=== PATIENT | female | born 1975 | race Caucasian/White ===

== ENCOUNTER 2019-02-28 13:27 | Outpatient (RCR) | payer OTHER, SELFPAY ==
--- NOTE | 2019-02-28 12:39 | WPDWOUNDNOTE ---
Wound Care Note Date/Time: 02/28/19 12:39 Patient is a 43-year-old woman who presented to the emergency room very early in the morning on February 17. She had obstipation for several days as well as abdominal distention and pain. CT scan showed evidence of an obstructing distal descending colon cancer. She had a limited colonoscopy on 02/18. Biopsies subsequently showed adenocarcinoma of the colon. Her CEA level was 5. CT scan of the abdomen and pelvis done in the emergency room did not show evidence of liver metastases. The patient underwent a diverting transverse loop colostomy on February 18, [address] bain. She recovered from that surgery uneventfully. She had colostomy teaching and was discharged on February 21, 2019. She is seen now in the wound clinic for evaluation of her colostomy and discussion of upcoming surgery which is to be done 2 days from now. She will also have irrigation of the distal colostomy in the wound clinic. Patient reports she is eating well. She is having no pain. She had several questions about the surgery which were all answered. EXAM-colostomy still edematous but working well. She does have some superficial skin breakdown due to making the aperture to large between the stoma and the umbilicus. Enterostomal therapist irrigating distal limb did bring back considerable amount of stool. The cephalad incision associated with colostomy creation is healing well. Assessment and Plan Assessment and plan (1) Adenocarcinoma of descending colon: Code(s): C18.6 - Malignant neoplasm of descending colon Status: Acute Assessment and Plan: Plan to proceed with take down of did transverse diverting colostomy as well as resection of the descending colon cancer on Saturday March 02, 2019. We discussed this procedure again. The procedure the risks the benefits were discussed. The potential for still requiring some type of colostomy or enterostomy was discussed. The usual recovery and time in the hospital were discussed. All questions were answered. She agrees to proceed. (2) Colostomy status: Code(s): Z93.3 - Colostomy status Status: Acute Assessment and Plan: Colostomy working well and patient is able to manage the colostomy. She does have some superficial skin breakdown just below the colostomy in above the umbilicus. This should not interfere with the surgery. Thankfully, she will only have the colostomy today and tomorrow and surgery is planned for Friday 03/02. The distal limb of the colostomy was irrigated in the wound clinic to facilitate prepared bowel for her left colectomy to be done on Thursday. (3) Smoker: Code(s): F17.200 - Nicotine dependence, unspecified, uncomplicated Status: Acute Assessment and Plan: Patient advises she really only smokes 1 or 2 cigarettes at bedtime. This relaxes her to help her sleep. She is currently taking a natural sedative at bedtime. (4) Anemia, pernicious: Code(s): D51.0 - Vitamin B12 deficiency anemia due to intrinsic factor deficiency Status: Chronic Assessment and Plan: Last hemoglobin was 10.3 on February 20. Anemia stable.
[2019-02-28 13:41] VITALS: BMI 19.8
== END 2019-05-16 07:50 | disposition home or self-care (01) ==
LOC: ANHWOC 13:27
PROVIDERS: Visit Provider Surgery
DX: Z43.3 Encounter for attention to colostomy (principal); C18.6 Malignant neoplasm of descending colon
CPT/HCPCS: 99213; G0463

== ENCOUNTER 2020-03-02 00:07 | Outpatient (CLI) | payer OTHER, SELFPAY ==
[2020-03-02 19:25] LABS: SARS-CoV-2 RNA PCR Negative
== END 2020-03-02 00:08 | disposition home or self-care (01) ==
LOC: ANHCOVIDDT 00:07
PROVIDERS: PCP Internal Medicine; Visit Provider Internal Medicine Gastroenterology
DX: Z20.828 Contact with and (suspected) exposure to other viral communicable diseases (principal)
CPT/HCPCS: 87635; C9803; U0003

== ENCOUNTER 2020-03-05 00:59 | Day surgery (SDC) | payer OTHER, SELFPAY ==
[2020-02-27 14:54] VITALS: BMI 20.9
[2020-03-05 06:24] VITALS: BP 104/66; PULSE 63; RESP 16; TEMP 36.5; O2SAT 99; BMI 20.9
[2020-03-05] MEDS: LACTATED RINGERS 1,000 ML 150 ML IV CONT (06:36)
--- NOTE | 2020-03-05 07:13 | WPDANESEPPF ---
Anes - Initial Pre Proc Eval Procedure: Operation Date: 03/05/20 07:30 Proposed Procedures p Screening Colonoscopy - Agapito Chan MD Date/Time: 03/05/20 07:13 Surgeon: Agapito Chan MD Pre Op Diagnosis: hx of colon CA, screening colonoscopy Patient Data Age: 44 Gender: F Height: 5 ft 2 in Weight: 52.1 kg Last Vital Signs Temp 97.7 F 03/05/20 06:24 Pulse 63 03/05/20 06:24 Resp 16 03/05/20 06:24 BP 104/66 03/05/20 06:24 Pulse Ox 99 03/05/20 06:24 Allergies Allergy/AdvReac Type Severity Reaction Status Date / Time No Known Allergies Allergy Verified 03/05/20 06:23 Home Medications Medication Instructions Recorded Confirmed Type cyanocobalamin (vitamin B-12) 1,000 mcg SUBCUT [id number] 02/24/19 02/27/20 History syringe with needle 3 mL 23 x 1 #50 each 12/27/19 01/09/20 Rx Patient hx anesthesia problems: none Family hx anesthesia problems: none PMFSH Past Medical History Medical History Adenocarcinoma of descending colon Stage IIA, T3 N0 M0 Anemia, pernicious Obstruction of descending colon Seizure Smoker Surgical History Surgical History History of partial colectomy Closure transverse colostomy, descending colon resection with anastomosis 03/02/2019 Family History Family History Mother Diabetes 1.5, managed as type 2 CD (Crohn's disease) History of bowel resection Cirrhosis of liver Diverticulitis of both large and small intestine Father History of knee surgery Other Colon cancer Social History Social History Social History: Her Ye is her durable power trademark attorney for healthcare and she wishes to be a full code. She has 2 children. 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 Gender identity (if verbalized by the patient): Female Spiritual care concerns: No Agree to blood products: Yes Anes - Eval Final PreProcedure Day of Procedure 03/05/20 07:13 Patient weight: normal Heart: regular rate and rhythm Lungs: clear to auscultation Airway: Mallampati scale Neurological: alert and oriented Last oral intake: >/= 8 hours ASA classification: III Emergent: no Anesthetic plan: proceed Anesthesia type and monitoring: general GIVS and standard monitoring Informed Consent: The patient's anesthetic plan and its attendant risks and benefits were discussed with the patient/family/POA. Questions were solicited and answers provided to the satisfaction of the patient/family/POA.
--- NOTE | 2020-03-05 07:40 | WPDGICN ---
Assessment and Plan Assessment and plan (1) Adenocarcinoma of descending colon: Code(s): C18.6 - Malignant neoplasm of descending colon Status: Acute Assessment and Plan: Patient with a history of carcinoma colon resected February 2019. Doing well presently. Plan is for surveillance colonoscopy now and at intervals in the future. GI Consult Note Consult date/time: 03/05/20 07:40 HPI: Vinita Faitma is a 44 year old female Seen in evaluation at the request of Dr. Rodríguez. Patient has a history of carcinoma colon identified by endoscopy 1 year ago. Patient presents today for follow-up examination. Patient's current weight appetite bowel movements are normal. Patient denies abdominal pain. Her bowel habits are normal. She denies any bleeding. Her weight has remained stable. Review of Systems Review of Systems: All systems reviewed & are unremarkable except as noted in HPI and below PMFSH Past Medical History Medical History Adenocarcinoma of descending colon Stage IIA, T3 N0 M0 Anemia, pernicious Obstruction of descending colon Seizure Smoker Surgical History Surgical History (Reviewed 03/17/19 @ 08:25 by Rebecca Weeks [facility]) History of partial colectomy Closure transverse colostomy, descending colon resection with anastomosis 03/02/2019 Family History Family History (Reviewed 03/17/19 @ 08:25 by Rebecca Weeks [facility]) Mother Diabetes 1.5, managed as type 2 CD (Crohn's disease) History of bowel resection Cirrhosis of liver Diverticulitis of both large and small intestine Father History of knee surgery Other Colon cancer Social History Social History (Reviewed 03/17/19 @ 08:25 by Rebecca Weeks [facility]) Social History: Her Ye is her durable power deputy county attorney for healthcare and she wishes to be a full code. She has 2 children. 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 Gender identity (if verbalized by the patient): Female Spiritual care concerns: No Agree to blood products: Yes Meds Home Medications and Allergies Home Medications Medication Instructions Recorded Confirmed Type cyanocobalamin (vitamin B-12) 1,000 mcg SUBCUT [id number] 02/24/19 02/27/20 History syringe with needle 3 mL 23 x 1 #50 each 12/27/19 01/09/20 Rx Allergies Allergy/AdvReac Type Severity Reaction Status Date / Time No Known Allergies Allergy Verified 03/05/20 06:23 Vital Signs Vital Signs - 24 hr 03/05/20 06:24 Temperature 97.7 F Pulse Rate 63 Respiratory Rate 16 Blood Pressure 104/66 Pulse Oximetry 99 Exam Narrative: Exam Narrative: Physical exam reveals patient to be alert. Vital signs stable. HEENT exam unremarkable. Lungs are clear to auscultation and percussion. Heart is without murmur or extra sounds. Abdominal exam bowel sounds are present soft nontender with no organomegaly. Digital external rectal exam normal.
[2020-03-05 07:44] VITALS: BP 109/66; PULSE 80; RESP 19; O2SAT 98
[2020-03-05 07:54] VITALS: BP 115/70; PULSE 60; RESP 19; O2SAT 99
[2020-03-05 08:04] VITALS: BP 118/74; PULSE 61; RESP 20; O2SAT 100
== END 2020-03-05 08:12 | disposition home or self-care (01) ==
PROVIDERS: PCP Internal Medicine; Visit Provider Internal Medicine Gastroenterology
PROC: 0DJD8ZZ Inspection of Lower Intestinal Tract, Via Natural or Artificial Opening Endoscopic (ICD-10-PCS; CPT 45378; principal; 2020-03-05 07:30)
DX: Z08 Encounter for follow-up examination after completed treatment for malignant neoplasm (principal); Z85.038 Personal history of other malignant neoplasm of large intestine; Z90.49 Acquired absence of other specified parts of digestive tract; Z98.0 Intestinal bypass and anastomosis status; D51.0 Vitamin B12 deficiency anemia due to intrinsic factor deficiency; F17.210 Nicotine dependence, cigarettes, uncomplicated
CPT/HCPCS: 45378; J2704; J7120

== ENCOUNTER 2020-10-10 12:41 | Outpatient (CLI) | payer OTHER, SELFPAY ==
[2020-10-10 14:04] LABS: Basophils Absolute Auto 0.1 K/mm3 (0.0-0.1); Basophils Percent Auto 0.9 % (0.2-1.2); Eosinophils Absolute Auto 0.2 K/mm3 (0-0.3); Eosinophils Percent Auto 3.4 % (0-4.4); Hematocrit 38.7 % (37.0-47.0); Hemoglobin 12.7 g/dL (12.0-15.0); Immature Granulocyte Absolute 0.02 K/mm3 (0.00-0.031); Immature Granulocyte Percent A 0.4 % (0-0.5); Lymphocytes Percent Auto 20.6 % (18.3-44.2); Mean Corpuscular HGB Conc 32.8 g/dl (32-36); Mean Corpuscular Hemoglobin 32.2 pg (26-34); Mean Platelet Volume 9.1 fl (7.4-10.4); Monocytes Absolute Auto 0.5 K/mm3 (0.1-0.6); Monocytes Percent Auto 9.2 % (2.6-8.5); Neutrophils Absolute Auto 3.5 K/mm3 (1.3-6.7); Neutrophils Percent Auto 65.5 % (45.5-73.1); Platelet Count Result 257 k/mm3 (150-375); Red Blood Count 3.95 M/mm3 (4.2-5.4); Red Cell Distribution Width 12.2 % (11.5-14.5); White Blood Count 5.4 K/mm3 (4.5-10.0)
== END 2020-10-10 12:42 | disposition home or self-care (01) ==
PROVIDERS: PCP Internal Medicine
DX: C18.6 Malignant neoplasm of descending colon (principal)
CPT/HCPCS: 36415; 85025

== ENCOUNTER 2021-06-17 15:00 | Outpatient (CLI) | payer OTHER, SELFPAY ==
--- NOTE | ~2021-06-17 | MM_ITS ---
EXAMINATION: MM screening estela BI w dada HISTORY: Screening TECHNIQUE: Craniocaudal and mediolateral oblique 3-D tomosynthesis images were obtained and synthetic 2-D images were generated. CAD analysis was submitted and interpreted. COMPARISON: 08/12/2012 BREAST PARENCHYMAL COMPOSITION: The breasts are heterogeneously dense, which may obscure small masses . FINDINGS: There is no evidence of suspicious mass, calcification, or architectural distortion to sugg est malignancy in either breast. There has been no suspicious interval change. IMPRESSION: 1. No mammographic evidence of malignancy. 2. Recommend routine screening mammography in one year. BI-RADS Category 1: Negative Reviewed, dictated and finalized at location A. ERY SETTER OUT
== END 2021-06-17 15:01 | disposition home or self-care (01) ==
LOC: ANHIMG 15:03
PROVIDERS: PCP Internal Medicine; Visit Provider Obstetrics & Gynecology
DX: Z12.31 Encounter for screening mammogram for malignant neoplasm of breast (principal)
CPT/HCPCS: 77063; 77067

== ENCOUNTER 2023-01-26 00:15 | Day surgery (SDC) | payer BC, SELFPAY ==
[2023-01-13 12:45] VITALS: BMI 21.2
[2023-01-26 07:58] VITALS: BP 103/71; PULSE 68; RESP 16; TEMP 36.1; O2SAT 99
[2023-01-26] MEDS: LACTATED RINGERS 1,000 ML 150 ML IV CONT (08:08)
--- NOTE | 2023-01-26 08:43 | PM.HPGS ---
History of Present Illness History of Present Illness Consent: Risks, benefits, and alternatives have been discussed and questions answered. Patient agrees to proceed with procedure. Chief complaint: history of colon cancer Narrative: Vinita Fatima is a 47 year old female Presents for screening colonoscopy. Patient has a history of colon cancer resected in 2019. Patient's follow-up colonoscopy 1 year later was unremarkable. Patient presents today for surveillance colonoscopy. She reports her current weight appetite bowel movements are normal. Family history is noncontributory. Review of Systems Review of Systems: Review of systems noncontributory. [facility] Past Medical History Medical History Adenocarcinoma of descending colon Stage IIA, T3 N0 M0 Anemia, pernicious Obstruction of descending colon Seizure Smoker Surgical History Surgical History History of partial colectomy Closure transverse colostomy, descending colon resection with anastomosis 03/02/2019 Family History Family History Mother Diabetes 1.5, managed as type 2 CD (Crohn's disease) History of bowel resection Cirrhosis of liver Diverticulitis of both large and small intestine Father History of knee surgery Other Colon cancer Social History Social History (Updated 06/23/22 @ 14:03 by Bianca Joe MA) Social History: Her Ye is her durable power cloud software engineer for healthcare and she wishes to be a full code. She has 2 children. Years smoked: 16 Smoking status: Current every day smoker Tobacco type: cigarettes Second hand tobacco smoke exposure: Yes Smoking end date: 02/27/19 Alcohol intake: current Drinks per week: 12 Alcohol use details: wine Substance use: current Substance use type: marijuana Last use: gummy monthly Lack of Transportation: No Lack of Food: Never True Current Housing: I Have Housing Concerned About Future Housing: No Difficulty Paying Gas/Electric Bills: No Difficulty Paying for Meds: No Currently Unemployed: No Education: Trade/Vocational Certificate Difficulty w/ Childcare or Family Care: No Living arrangements: with family Occupation/Education: occupation 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 Gender identity (if verbalized by the patient): Female Spiritual care concerns: No Agree to blood products: Yes Meds Home Medications and Allergies Home Medications Medication Instructions Recorded Confirmed Type cyanocobalamin (vitamin B-12) 1,000 mcg subcut [id number] #1 ea 06/23/22 01/26/23 Rx 1,000 mcg/mL injection kit syringe with needle 3 mL 23 x 1 #50 06/23/22 11/26/22 Rx (BD Eclipse Luer-Alton) Allergies Allergy/AdvReac Type Severity Reaction Status Date / Time No Known Allergies Allergy Verified 01/26/23 07:56 Vital Signs Vital Signs - 24 hr 01/26/23 07:58 Temperature 97.0 F L Pulse Rate 68 Respiratory Rate 16 Blood Pressure 103/71 Pulse Oximetry 99 Oxygen Delivery Room Air Exam Narrative: Physical exam reveals patient to be alert. Vital signs stable. HEENT exam is unremarkable. Patient is anicteric. Lungs are clear to auscultation and percussion. Heart is without murmur or extra sounds. Abdomen bowel sounds are present soft nontender with no organomegaly. Digital external rectal exam is normal. Assessment and Plan Assessment and plan (1) History of colon cancer: Code(s): Z85.038 - Personal history of other malignant neoplasm of large intestine Status: Acute Assessment and Plan: Patient has a history of colon cancer resected in 2019. No evidence recurrence. Plan for surveillance colonoscopy now and at least every 3 years in the future.
--- NOTE | 2023-01-26 08:44 | WPDANESEPPF ---
Anes - Initial Pre Proc Eval Procedure: Operation Date: 01/26/23 09:00 Proposed Procedures p Colonoscopy - Agapito Chan MD Date/Time: 01/26/23 08:44 Surgeon: Agapito Chan MD Pre Op Diagnosis: HX of other malignant neoplasm of large intestine Patient Data Age: 47 Gender: F Height: 1.57 m Weight: 52.3 kg Last Vital Signs Temp 97.0 F L 01/26/23 07:58 Pulse 68 01/26/23 07:58 Resp 16 01/26/23 07:58 BP 103/71 01/26/23 07:58 Pulse Ox 99 01/26/23 07:58 O2 Del Method Room Air 01/26/23 07:58 Allergies Allergy/AdvReac Type Severity Reaction Status Date / Time No Known Allergies Allergy Verified 01/26/23 07:56 Home Medications Medication Instructions Recorded Confirmed Type cyanocobalamin (vitamin B-12) 1,000 mcg subcut [id number] #1 ea 06/23/22 01/26/23 Rx 1,000 mcg/mL injection kit syringe with needle 3 mL 23 x 1 #50 ea 06/23/22 11/26/22 Rx (BD Eclipse Luer-Alton) Patient hx anesthesia problems: none Family hx anesthesia problems: none Results Review: All pre-operative results and documents have been reviewed as part of the pre-operative evaluation. [facility] Past Medical History Medical History Adenocarcinoma of descending colon Stage IIA, T3 N0 M0 Anemia, pernicious Obstruction of descending colon Seizure Smoker Surgical History Surgical History History of partial colectomy Closure transverse colostomy, descending colon resection with anastomosis 03/02/2019 Family History Family History Mother Diabetes 1.5, managed as type 2 CD (Crohn's disease) History of bowel resection Cirrhosis of liver Diverticulitis of both large and small intestine Father History of knee surgery Other Colon cancer Social History Social History (Updated 06/23/22 @ 14:03 by Bianca Joe MA) Social History: Her Ye is her durable power health care attorney for healthcare and she wishes to be a full code. She has 2 children. Years smoked: 16 Smoking status: Current every day smoker Tobacco type: cigarettes Second hand tobacco smoke exposure: Yes Smoking end date: 02/27/19 Alcohol intake: current Drinks per week: 12 Alcohol use details: wine Substance use: current Substance use type: marijuana Last use: gummy monthly Lack of Transportation: No Lack of Food: Never True Current Housing: I Have Housing Concerned About Future Housing: No Difficulty Paying Gas/Electric Bills: No Difficulty Paying for Meds: No Currently Unemployed: No Education: Trade/Vocational Certificate Difficulty w/ Childcare or Family Care: No Living arrangements: with family Occupation/Education: occupation 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 Gender identity (if verbalized by the patient): Female Spiritual care concerns: No Agree to blood products: Yes Anes - Eval Final PreProcedure Day of Procedure 01/26/23 08:44 Patient weight: normal Heart: regular rate and rhythm Lungs: clear to auscultation Airway: Mallampati scale class II Neurological: alert and oriented Last oral intake: >/= 8 hours ASA classification: III Emergent: no Anesthetic plan: proceed Anesthesia type and monitoring: general GIVS and standard monitoring Results Review: All pre-operative results and documents have been reviewed as part of the pre-operative evaluation. Informed Consent: The patient's anesthetic plan and its attendant risks and benefits were discussed with the patient/family/POA. Questions were solicited and answers provided to the satisfaction of the patient/family/POA.
[2023-01-26 09:13] VITALS: BP 87/54; PULSE 62; RESP 13; O2SAT 98
[2023-01-26 09:23] VITALS: BP 96/60; PULSE 59; RESP 15; O2SAT 99
[2023-01-26 09:33] VITALS: BP 110/74; PULSE 60; RESP 14; O2SAT 99
== END 2023-01-26 09:46 | disposition home or self-care (01) ==
PROVIDERS: Visit Provider Internal Medicine Gastroenterology
PROC: 0DJD8ZZ Inspection of Lower Intestinal Tract, Via Natural or Artificial Opening Endoscopic (ICD-10-PCS; CPT 45378; principal; 2023-01-26 09:00)
DX: Z12.11 Encounter for screening for malignant neoplasm of colon (principal); K64.8 Other hemorrhoids; D64.9 Anemia, unspecified; F17.210 Nicotine dependence, cigarettes, uncomplicated; F12.90 Cannabis use, unspecified, uncomplicated; Z90.49 Acquired absence of other specified parts of digestive tract; Z85.038 Personal history of other malignant neoplasm of large intestine
CPT/HCPCS: 45378; J2704; J7120

== ENCOUNTER 2023-03-02 13:32 | Outpatient (CLI) | payer BC, SELFPAY ==
--- NOTE | ~2023-03-02 | MM_ITS ---
EXAMINATION: MM screening estela BI w dada HISTORY: Screening mammogram TECHNIQUE: Craniocaudal and mediolateral oblique 3-D tomosynthesis images were obtained and synthetic 2-D images were generated. CAD analysis was submitted and interpreted. COMPARISON: 06/17/2021 bilateral screening mammogram 08/12/2012 bilateral diagnostic mammogram and left breast ultrasound examination BREAST PARENCHYMAL COMPOSITION: The breasts are heterogeneously dense, which may obscure small masses . FINDINGS: There is no evidence of suspicious mass, calcification, or architectural distortion to sugg est malignancy in either breast. There has been no suspicious interval change. IMPRESSION: 1. No mammographic evidence of malignancy. 2. Recommend routine screening mammography in one year. BI-RADS Category 1: Negative Reviewed, dictated and finalized at location A. D INSTALLER
== END 2023-03-02 13:33 | disposition home or self-care (01) ==
LOC: CHSIMG 13:33
PROVIDERS: Visit Provider Obstetrics & Gynecology
DX: Z12.31 Encounter for screening mammogram for malignant neoplasm of breast (principal)
CPT/HCPCS: 77063; 77067

== ENCOUNTER 2024-07-29 13:53 | Outpatient (CLI) | payer OTHER, SELFPAY ==
--- NOTE | ~2024-07-29 | MM_ITS ---
EXAMINATION: MM screening estela BI w adda HISTORY: Screening TECHNIQUE: Craniocaudal and mediolateral oblique 3-D tomosynthesis images were obtained and synthetic 2-D images were generated. CAD analysis was submitted and interpreted. COMPARISON: Comparison to multiple prior studies sequentially, with oldest reviewed study dated 05/2012. BREAST PARENCHYMAL COMPOSITION: Dense: The breasts are heterogeneously dense, which may obscure small masses FINDINGS: There is a new focal mass in the central aspect of the left breast, midposterior depth with possible spiculations. The right breast is stable without evidence for malignancy. IMPRESSION: 1. New left breast mass located centrally, midposterior depth. 2. Additional mammographic views and possible breast ultrasound are recommended. BI-RADS Category 0: Incomplete: Needs additional imaging evaluation. Reviewed, dictated and finalized at location B. IMPRESSION: 1. New left breast mass located centrally, midposterior depth. 2. Additional mammographic views and possible breast ultrasound are recommended . BI-RADS Category 0: Incomplete: Needs additional imaging evaluation.
--- OUTSIDE RECORDS SUMMARY | 2024-07-29 13:58 | XMS_ITS | Referral Summary ---
Author Organization [facility] Address [address] [place] [id number] Care Team Providers Care Pattern Grader Supervisor Name Role Phone Jaime Hernandez MD Unavailable [phone] Murtaza Rodríguez MD Primary Care Provider [phone] Allergies No known active allergies Medications erythromycin (E-MYCIN) 500 mg tablet 0 9 Active ketorolac (TORADOL) 10 mg tablet TK 1 T PO Q 6 H FOR 4 DAYS 0 9 Active neomycin (MYCIFRADIN) 500 mg tablet 0 9 Active BD LUER-ALTON SYRINGE 3 mL 25 gauge x 1 syringe USE TO INJECT B12 DIRECTED 3 9 Active docusate sodium (COLACE) 100 mg capsuleIndicatio ns:constipation Take 1 capsule (100 mg total) by mouth 2 (two) times a day 60 capsule 3 1 Active Additional Information Patient not taking.Reported on 03/28/2024 senna-docusate (PERICOLACE) 8.6-50 mgIndications:Ma lignant neoplasm of descending colon (HCC),Other constipation Take 2 tablets by mouth daily At bedtime as needed for constipation 60 tablet 3 1 Active Additional Information Patient not taking.Reported on 03/28/2024 syringe, disposable, (BD Safety-Alton with Luer-Alton) 3 mL syringe 1 Syringe every 14 (fourteen) days Please provide a 25 ga needle, IM length. 6 each 2 Active Additional Information Patient not taking.Reported on 03/28/2024 cyanocobalamin (Vitamin B-12) 1,000 mcg/mL injection INJECT 1 ML IN THE MUSCLE INTRUCTED EVERY 14 DAYS 2 mL 11 4 Active Active Problems Problem Noted Date Diagnosed Date Malignant neoplasm of descending colon 9 Social History Tobacco Use Types Packs/Day Years Used Date Smoking Tobacco: Every Day Cigarettes 0.1 13 Smokeless Tobacco: Never Tobacco Cessation:Ready to Q uit: No Alcohol Use Standard Drinks/Week Comments Yes 7 (1 standard drink = 0.6 oz pur e alcohol) AUDIT-C Answer Date Recorded Frequency of Alcohol Consumption 4 or more times a week 05/25/2019 Average Number of Drinks 1 or 2 020 Frequency of Binge Drinking Never 05/14 Comments Unknown Sex and Gender Information Value Date Recorded Sex Assigned at Not on file Legal Sex Female 11:55 AM COORDINATOR OF [employer]RARY SERVICES Gender Identity Not on file Sexual Orientation Not on file Last Filed Vital Signs Vital Sign Reading Time Taken Comments Blood Pressure 122/80 03/28/2024 10:10 AM COORDINATOR OF LIBRARY SERVICES Pulse 50 03/28/2024 10:10 AM COORDINATOR OF LIBRARY SERVICES Temperature 36.4 C (97.5 F) 03/28/2024 10:10 AM COORDINATOR OF LIBRARY SERVICES Respiratory Rate 18 03/28/2024 10:10 AM COORDINATOR OF LIBRARY SERVICES Oxygen Saturation 100% 03/28/2024 10:10 AM COORDINATOR OF LIBRARY SERVICES Inhaled Oxygen Concentration - - Weight 53.7 kg (118 lb 6.4 oz) 03/28/2024 10:10 AM COORDINATOR OF LIBRARY SERVICES Height 157.2 cm (5' 1.89 ) 08/28/2021 9:07 AM CD T Body Mass Index 21.73 08/28/2021 9:07 AM CDT Plan of Treatment Not on file Insurance [employer] ACCESS CHOICE ANTHEM ACCESS CHOICE Care Teams Pattern Grader Supervisor Relationship Specialty Start Date End Date Murtaza Rodríguez MD [address] [place] [address] PCP - General Internal Medicine 03/23/19 Jaime Hernandez MD [address] [place] [address] Surgeon Vascular Surgery 02/24/19
--- OUTSIDE RECORDS SUMMARY | 2024-07-29 13:59 | XMS_ITS | Clinical Summary ---
Author Organization [facility] Address [address] [place], [place] [id number] Care Team Providers Care Recovery Coach Name Role Phone Unavailable Primary Care Provider Unavailabl e Social History Tobacco Use Types Packs/Day Years Used Date Smoking Tobacco: Never Assessed Comments Unknown Sex and Gender Information Value Date Recorded Sex Assigned at Not on file Legal Sex Female 4:26 PM CDT Gender Identity Not on file Sexual Orientation Not on file Plan of Treatment Health Maintenance Due Date Last Done Comments Cervical Cancer Screening Pa p Smear (Age 30 to 64) Every 3 Years 1974 Colorectal Cancer Screening Colonoscopy (10 Years) 1974 Annual Physical 1977 Hepatitis C 1992 DTaP, Tdap and Td Vaccines ( 1 - Tdap) 1993 Hepatitis B Vaccines (1 of 3 - 19+ 3-dose series) 1993 Cervical Cancer Screening Pa p with HPV Testing (Age 30 to 64) Every 5 Years 2004 Cervical Cancer Screening with HPV 2004 Mammogram Screening 2014 COVID-19 Vaccine ( - 2023-2 5 season) 2023 Pneumococcal Vaccine: 50+ Ye ars (1 of 1 - PCV) 2024 Zoster Vaccines (1 of 2) 2024 Meningococcal B Vaccine Aged Out No l onger eligible based on patient's age to complete this topic Meningococcal Vaccine Aged Out No stephany maureen eligible based on patient's age to complete this topic RSV Immunizations Under 20 Months Aged Out No longer eligible based on patient's age to complete this topic Insurance * Guarantor: Vinita Fatima Account Type Relation to Patient Date of Phone Billing Address Personal/Family Self 1975 [address] [place] [address] [employer]
--- OUTSIDE RECORDS SUMMARY | 2024-07-29 13:59 | XMS_ITS | Clinical Summary ---
Author Organization [facility] Address [address] [place] [phone] Care Team Providers Care Line Decorator Name Role Phone Jaime Hernandez MD Unavailable [phone] Murtaza Rodríguez MD Primary Care Provider [phone] Allergies No known active allergies Medications erythromycin [...] Date Malignant neoplasm of descending colon 9 Surgical History Surgery Date Site/Laterality Comments ABDOMINAL SURGERY COLON SURGERY Medical History Medical History Date Comments Cancer (HCC) Family History Medical History Relation Name Comments Cancer Father's Brother Relation Name Status Comments Father's Brother Social History Tobacco Use Types Packs/Day Years [...] on file Legal Sex Female 11:55 AM 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 MILL MANAGER Gender Identity Not on file Sexual Orientation Not on file Obstetrics History Last Filed Vital Signs Vital Sign Reading Time Taken Comments Blood Pressure 122/80 03/28/2024 10:10 AM PAPER MILL MANAGER Pulse 50 03/28/2024 10:10 AM PAPER MILL MANAGER Temperature 36.4 C (97.5 F) 03/28/2024 10:10 AM PAPER MILL MANAGER Respiratory Rate 18 03/28/2024 10:10 AM PAPER MILL MANAGER Oxygen Saturation 100% 03/28/2024 10:10 AM PAPER MILL MANAGER Inhaled Oxygen Concentration - - Weight 53.7 kg (118 lb 6.4 oz) 03/28/2024 10:10 AM PAPER MILL MANAGER Height 157.2 cm (5' 1.89 ) 08/28/2021 9:07 AM CD T Body Mass Index 21.73 08/28/2021 9:07 AM CDT Plan of Treatment Health Maintenance Due Date Last Done Comments Breast Cancer Screening-Mammogram 1974 Cervical Cancer Screening 1974 Colon Cancer Screening-Colonoscopy 1974 Depression Screening 1974 Hepatitis C Screening 1974 DTaP/Tdap/Td Vaccine (1 - Tdap) 1985 Hepatitis B Screening 1992 Regular Well Visit/Exam 18-64 1992 Pneumococcal vaccine <65 (1 of 2 - PCV) 1993 Covid-19 Vaccine (2 season) 2023 Zoster Vaccine (1 of 2) 2024 Influenza Vaccine (Season Ended) 2024 Insurance [employer] ACCESS CHOICE [employer] ACCESS CHOICE Care Teams Line Decorator Relationship Specialty Start Date End Date Murtaza Rodríguez MD [address] [place] [address] PCP - General Internal Medicine 03/23/19 Jaime Hernandez MD [address] [address] Surgeon Vascular Surgery 02/24/19
--- OUTSIDE RECORDS SUMMARY | 2024-07-29 13:59 | XMS_ITS ---
Author Organization [facility] Address [address] [place] [phone] Care Team Providers Care Clothes Model Name Role Phone Jaime Hernandez MD Unavailable [phone] Murtaza Rodríguez MD Primary Care Provider [phone] Active Problems Problem Noted Date Diagnosed Date Malignant neoplasm of descending colon 9 Current Treatment and Therapy Plans No current plan information found. Past Treatment and Therapy Plans No past plan information found. Lifetime Dose Tracking * Chemical Lifetime Dose Automatic Entry Manual Entr y DLP 3,174 mGycm 3,174 mGycm 0 mGycm
--- OUTSIDE RECORDS SUMMARY | 2024-07-29 13:59 | XMS_ITS | Clinical Summary ---
Author Organization [facility] Address [address] [place] [address] Care Team Providers Care Varnish Mixer Name Role Phone Chantal Sun Josephine Unavailable Unavailable Source Comments [facility],non-owned Affiliates and Associated Physician Practices is amultiple site organization consisting of ambulatory clinics and hospital sitesin [place], [place], [place] and [place]. This disclosure is being madepursuant to the Care Everywhere program and may not contain all information available regarding this patient. Last updated 18.[facility] Allergies No known active allergies Medications * Be aware that medications may not be up to date on this document. Alwaysverify current medications with the patient. cyanocobalamin (VITAMIN B-12) injectionIndica tions:Trigemina l neuralgia,Numbn ess 09/28/2017 Active Collagen 500 MGIndications:T rigeminal neuralgia,Numbn ess Take 500 mg by mouth once daily Active [place]-3 Fatty Acids (FISH OIL PO)Indications: Trigeminal neuralgia,Numbn ess Take 1 capsule by mouth once daily Active ascorbic acid (VITAMIN C) 500 MG tabletIndicatio ns:Trigeminal neuralgia,Numbn ess Take 500 mg by mouth once daily Active VITAMIN E POIndications:T rigeminal neuralgia,Numbn ess Take 1 capsule by mouth once daily Active carBAMazepine XR 12hr (TEGRETOL XR) 100 MG tabletIndicatio ns:Trigeminal neuralgia,Numbn ess Take 1 tablet by mouth 2 times daily with morning and evening meal 60 tablet 5 10/05/2017 Active Active Problems Problem Noted Date Diagnosed Date Trigeminal neuralgia 10/05/2017 Family History Medical History Relation Name Comments Asthma Mother Bipolar Disorder Mother Depression Mother Diabetes - Type 2 Mother Other Mother liver disease Relation Name Status Comments Brother Alive Father Alive Mother Social History Tobacco Use Types Packs/Day Years Used Date Smoking Tobacco: Some Days Smokeless Tobacco: Never Alcohol Use Standard Drinks/Week Comments Yes 0 (1 standard drink = 0.6 oz pur e alcohol) red wine 2 bottles a week Comments Unknown Sex and Gender Information Value Date Recorded Sex Assigned at Not on file Legal Sex Female 10:23 AM CDT Gender Identity Not on file Sexual Orientation Not on file Last Filed Vital Signs Vital Sign Reading Time Taken Comments Blood Pressure 116/80 10/05/2017 11:56 AM CDT Pulse 67 10/05/2017 11:56 AM CDT Temperature - - Respiratory Rate 12 10/05/2017 11:56 AM CDT Oxygen Saturation 99% 10/05/2017 11:56 AM CDT Inhaled Oxygen Concentration - - Weight 52.2 kg (115 lb) 10/05/2017 11:56 AM CDT Height 154.9 cm (5' 1 ) 10/05/2017 11:56 AM CDT Body Mass Index 21.73 10/05/2017 11:56 AM CDT Plan of Treatment Health Maintenance Due Date Last Done Comments COLOGUARD (AGES 45-75) - COL ON CA SCREENING 1974 COLON MONITORING 1974 COLONOSCOPY - COLON CA SCREENING 1974 CT COLONOGRAPHY - COLON CA SCREENING 1974 Colorectal Cancer Screening 1974 FIT - COLON CA SCREENING 1974 FLEX SIG - COLON CA SCREENING 1974 LIPID TESTING 1974 MAMMOGRAM 1974 PAP SMEAR 1974 HIV SCREENING 1989 HEPATITIS C SCREENING 07/08/1992 DTAP/TDAP/TD VACCINES (1 - Tdap) 1993 HEPATITIS B VACCINE (1 of 3 - 19+ 3-dose series) 1993 PNEUMOCOCCAL VACCINE (1 of 2 - PCV) 1993 COVID-19 VACCINE (1 - 2023-2 5 season) 2023 DEPRESSION SCREENING 04/13/2024 PNEUMOCOCCAL VACCINE 50+ (1 of 1 - PCV) 2024 ZOSTER VACCINE (1 of 2) 2024 INFLUENZA VACCINE (Season Ended) 2024 HIB VACCINE Aged Out No longer eligi ble based on patient's age to complete this topic HPV VACCINE Aged Out No longer eligi ble based on patient's age to complete this topic MENINGOCOCCAL (Group B) VACC INE SHARED DECISION-MAKING Aged Out No longer eligibl e based on patient's age to complete this topic MENINGOCOCCAL GROUPS A/C/Y/W VACCINE Aged Out No longer eligible b ased on patient's age to complete this topic Insurance * Guarantor: Vinita William Account Type Relation to Patient Date of Phone Billing Address Personal/Family Self 1975 [address] [place] [address] [facility] [place] Address[facility] [id number] [place] [address] [facility] Care Teams Varnish Mixer Relationship Specialty Start Date End Date Chantal Sun Update Information Physician Hematology and Oncology 10/08/17
== END 2024-07-29 13:54 | disposition home or self-care (01) ==
LOC: CHSIMG 13:54
PROVIDERS: PCP Nurse Practitioner Family; Visit Provider Nurse Practitioner Family
DX: Z12.31 Encounter for screening mammogram for malignant neoplasm of breast (principal); R92.8 Other abnormal and inconclusive findings on diagnostic imaging of breast
CPT/HCPCS: 77063; 77067

== ENCOUNTER 2024-08-17 09:37 | Outpatient (CLI) | payer OTHER, SELFPAY ==
--- NOTE | ~2024-08-17 | MMUS_ITS ---
EXAMINATION: MM diagnostic estela LT w dada, US breast LT complete HISTORY: Follow-up left breast mass TECHNIQUE: Additional 3-D tomosynthesis images of the left breast were performed and synthetic 2-D im ages were generated. CAD analysis was submitted and interpreted. High resolution complete left breast ultrasound was performed. COMPARISON: Comparison to multiple prior studies sequentially, with oldest reviewed study dated 10/2021. BREAST PARENCHYMAL COMPOSITION: Dense: The breasts are heterogeneously dense, which may obscure small masses FINDINGS: MAMMOGRAPHIC FINDINGS: The mass seen on prior examination in the central aspect of the left breast is not identified on the current study. There are no suspicious masses, calcifications or architectural distortion in the left breast to suggest malignancy. ULTRASOUND: Complete US of all 4 quadrants of the left breast/s and retroareolar region was reviewed. At 7:00 vida r the nipple there is a 3 mm cyst. No suspicious masses to suggest malignancy. IMPRESSION: 1. No evidence for malignancy in the left breast. 2. Routine yearly screening mammogram and regular clinical breast examination are recommended. BI-RADS Category 2: Benign finding(s). Reviewed, dictated and finalized at location A. IMPRESSION: 1. No evidence for malignancy in the left breast. 2. Routine yearly screening mammogram and regular clinical breast examination a re recommended. BI-RADS Category 2: Benign finding(s).
--- OUTSIDE RECORDS SUMMARY | 2024-08-17 10:11 | XMS_ITS | Referral Summary ---
Author Organization [facility] Address [address] [place] [phone] Care Team Providers Care Bulk Plant Agent Name Role Phone Jaime Hernandez MD Unavailable [phone] Murtaza Rodríguez MD Primary Care Provider [phone] Allergies No known active allergies Medications erythromycin [...] on file Legal Sex Female 11:55 AM LINOLEUM TILE FLOOR LAYER Gender Identity Not on file Sexual Orientation Not on file Last Filed Vital Signs Vital Sign Reading Time Taken Comments Blood Pressure 122/80 03/28/2024 10:10 AM LINOLEUM TILE FLOOR LAYER Pulse 50 03/28/2024 10:10 AM LINOLEUM TILE FLOOR LAYER Temperature 36.4 C (97.5 F) 03/28/2024 10:10 AM LINOLEUM TILE FLOOR LAYER Respiratory Rate 18 03/28/2024 10:10 AM LINOLEUM TILE FLOOR LAYER Oxygen Saturation 100% 03/28/2024 10:10 AM LINOLEUM TILE FLOOR LAYER Inhaled Oxygen Concentration - - Weight 53.7 kg (118 lb 6.4 oz) 03/28/2024 10:10 AM LINOLEUM TILE FLOOR LAYER Height 157.2 cm (5' 1.89 ) 08/28/2021 9:07 AM CD T Body Mass Index 21.73 08/28/2021 9:07 AM CDT Plan of Treatment Not on file Insurance [email or web address] ACCESS CHOICE AN[employer]M ACCESS CHOICE Care Teams Bulk Plant Agent Relationship Specialty Start Date End Date Murtaza Rodríguez MD [address] [place] [address] PCP - General Internal Medicine 03/23/19 Jaime Hernandez MD [address] [place] [address] Surgeon Vascular Surgery 02/24/19
--- OUTSIDE RECORDS SUMMARY | 2024-08-17 10:11 | XMS_ITS | Clinical Summary ---
Author Organization [facility] Address [address] [place] [phone] Care Team Providers Care Assembler Finger Buffs Name Role Phone Jaime Hernandez MD Unavailable [phone] Murtaza Rodríguez MD Primary Care Provider [phone] Allergies No known active allergies Medications erythromycin [...] on file Legal Sex Female 11:55 AM PHYSICAL LABORATORY ASSISTANT Gender Identity Not on file Sexual Orientation Not on file Obstetrics History Last Filed Vital Signs Vital Sign Reading Time Taken Comments Blood Pressure 122/80 03/28/2024 10:10 AM PHYSICAL LABORATORY ASSISTANT Pulse 50 03/28/2024 10:10 AM PHYSICAL LABORATORY ASSISTANT Temperature 36.4 C (97.5 F) 03/28/2024 10:10 AM PHYSICAL LABORATORY ASSISTANT Respiratory Rate 18 03/28/2024 10:10 AM PHYSICAL LABORATORY ASSISTANT Oxygen Saturation 100% 03/28/2024 10:10 AM PHYSICAL LABORATORY ASSISTANT Inhaled Oxygen Concentration - - Weight 53.7 kg (118 lb 6.4 oz) 03/28/2024 10:10 AM PHYSICAL LABORATORY ASSISTANT Height 157.2 cm (5' 1.89 ) 08/28/2021 [...] 2024 Influenza Vaccine (Season Ended) 2024 Insurance [employer] ACCESS CHOICE [employer] ACCESS CHOICE Care Teams Assembler Finger Buffs Relationship Specialty Start Date End Date Murtaza Rodríguez MD [address] [place] [address] PCP - General Internal Medicine 03/23/19 Jaime Hernandez MD [address] [facility] [address] [address] Surgeon Vascular Surgery 02/24/19
--- OUTSIDE RECORDS SUMMARY | 2024-08-17 10:11 | XMS_ITS | Clinical Summary ---
Author Organization [facility] Address [address] [place], [place] [id number] Care Team Providers Care Social Media Marketing Manager Name Role Phone Unavailable Primary Care Provider [...] Billing Address Personal/Family Self 1975 [address] [place] [address] [employer]
--- OUTSIDE RECORDS SUMMARY | 2024-08-17 10:11 | XMS_ITS ---
Author Organization [facility] Address [address] [place] [phone] Care Team Providers Care University Counselor Name Role Phone Jaime Hernandez MD Unavailable [phone] Murtaza Rodríguez MD Primary Care Provider [phone] Active Problems Problem Noted Date Diagnosed Date Malignant neoplasm of descending colon 9 Current Treatment and Therapy Plans No current plan information found. Past Treatment and Therapy Plans No past plan information found. Lifetime Dose Tracking * Chemical Lifetime Dose Automatic Entry Manual Entr y DLP 3,174 mGycm 3,174 mGycm 0 mGycm
--- OUTSIDE RECORDS SUMMARY | 2024-08-17 10:11 | XMS_ITS | Clinical Summary ---
Author Organization [facility] Address [address] [place] [address] Care Team Providers Care Nuclear Licensing Engineer Name Role Phone Chantal Sun Unavailable Unavailable Source Comments [facility],non-owned Affiliates and Associated Physician Practices is amultiple site organization consisting of ambulatory clinics and hospital sitesin [place], [place] and [place]. This disclosure is being madepursuant to the Care Everywhere program and may not contain all information available regarding this patient. Last updated 18.[facility] Allergies No known active allergies Medications * Be aware that medications may not be up to date on this document. Alwaysverify current medications with the patient. cyanocobalamin (VITAMIN B-12) injectionIndica tions:Trigemina l neuralgia,Numbn ess 09/28/2017 Active Collagen 500 MGIndications:T rigeminal neuralgia,Numbn ess Take 500 mg by mouth once daily Active [place]-3 Fatty Acids (FISH OIL PO)Indications: Trigeminal neuralgia,Numbn [...] SCREENING 1974 LIPID TESTING 1974 MAMMOGRAM 1974 HIV SCREENING 1989 HEPATITIS C SCREENING 07/08/1992 DTAP/TDAP/TD VACCINES (1 - Tdap) 1993 HEPATITIS B VACCINE (1 of 3 - 19+ 3-dose series) 1993 COVID-19 VACCINE ( - 2023-2 5 season) 2023 DEPRESSION SCREENING [...] Billing Address Personal/Family Self 1975 [address] [place] [address] [employer] [facility] Address: [facility] [id number] [id number] [facility] Care Teams Nuclear Licensing Engineer Relationship Specialty Start Date End Date Chantal Sun Update Information Physician Hematology and Oncology 10/08/17
== END 2024-08-17 09:38 | disposition home or self-care (01) ==
PROVIDERS: PCP Nurse Practitioner Family; Visit Provider Nurse Practitioner Family
DX: R92.8 Other abnormal and inconclusive findings on diagnostic imaging of breast (principal)
CPT/HCPCS: 76641; 77061; 77065; G0279